=== PATIENT | male | born 1935 | race Caucasian/White ===

== ENCOUNTER 2019-06-22 07:12 | Emergency (ER) | payer MEDICARE ==
[~2019-06-22] VITALS: Ht 170.2 cm; Wt 65.9 kg
--- NOTE | 2019-06-22 07:30 | NUR ---
PT AMBULATORY WITH STEADY GAIT TO ROOM AT THIS TIME.
--- NOTE | 2019-06-22 07:47 | NUR ---
Pt ambulated to room, care assumed by Izabel CASTILLO. Pt reports sudden tightness in his chest around 0700, since that time it has faded and pt reports "no abnormal pain." Pt changed into gown, given warm blankets and non skid socks. Pt laying in bed on monitor, call light within reach. NAD, chest rise and fall equal and bilateral, denies any further needs at this time. WCTM.
[2019-06-22] MEDS ORDERED: SODIUM CHLORIDE FLUSH 10ML SYR IVF ONE (08:00)
[2019-06-22 08:02] LABS: BASOPHILS # (AUTO) 0.01 x10^3/uL (0-0.1); BASOPHILS % (AUTO) 0 % (0-1); EOSINOPHILS % (AUTO) 2 % (1-7); LYMPHOCYTES # (AUTO) 1.13 x10^3/uL (1-3.4); LYMPHOCYTES % (AUTO) 23 % (22-44); MD NO; MEAN CORPUSCULAR HEMOGLOBIN 31.5 pg (27.5-34.5); MEAN CORPUSCULAR HGB CONC 33.2 g/dL (33.2-36.2); MEAN CORPUSCULAR VOLUME 94.8 fL (81-97); MEAN PLATELET VOLUME 9.2 fL (7.4-10.4); MONOCYTES # (AUTO) 0.44 x10^3/uL (0.2-0.8); MONOCYTES % (AUTO) 9 % (2-9); NEUTROPHILS # (AUTO) 3.19 x10^3/uL (1.8-6.8); NEUTROPHILS % (AUTO) 66 % (42-75); PLATELET COUNT 157 x10^3/uL (130-400); RED CELL DISTRIBUTION WIDTH 13.2 % (9.4-14.8)
[2019-06-22 08:04] LABS: ALBUMIN 3.8 g/dL (3.4-5.0); ANION GAP 6 mmol/L (5-15); CALCIUM 8.4 mg/dL (8.5-10.1); CHLORIDE 108 mmol/L (98-107); CREATININE 1.17 mg/dL (0.7-1.3)
[2019-06-22 08:09] LABS: TROPONIN I < 0.015 ng/mL (0.000-0.045)
--- NOTE | 2019-06-22 08:37 | NUR ---
Pt laying in gurney with blankets. Pt asked RN to notify son in lobby that he "is doing okay and is not yet". NAD, even respirations, clear speech to RN at this time. NAD, denies any additional needs at this time, call light within reach. WCTM
--- NOTE | 2019-06-22 08:42 | NUR ---
Dr Connor at bedside, updating pt with plan of care and options. WCTM.
[2019-06-22 09:02] VITALS: BP 132/68
== END 2019-06-22 09:05 | disposition home or self-care (01) ==
LOC: ED 08:45
DX: R07.89 Other chest pain (principal); I10 Essential (primary) hypertension
CPT/HCPCS: 36415; 71046; 80048; 82040; 83880; 84484; 85025; 93005; 99285